=== PATIENT | female | born 1965 | race African-American/Black ===

== ENCOUNTER 2019-08-30 13:56 | Emergency (ER) | payer OTHER, SELFPAY ==
--- NOTE | 2019-08-30 14:19 | RAD ---
CHEST 2 VIEWS: Date: 08/30/2019 HISTORY: Cough. COMPARISON: 12/28/2012. FINDINGS: Cardiac silhouette and pulmonary vasculature unremarkable. Mediastinum midline. There is no confluent air space consolidation, pneumothorax, or pleural fluid. Mild rightward convex curvature of the thor acolumbar junction. IMPRESSION: No active cardiopulmonary abnormalities are demonstrated. POS: [facility]
== END 2019-08-30 17:26 | disposition home or self-care (01) ==
LOC: ERS 13:56
DX: J20.9 Acute bronchitis, unspecified (principal); I10 Essential (primary) hypertension; F20.9 Schizophrenia, unspecified; F17.210 Nicotine dependence, cigarettes, uncomplicated
CPT/HCPCS: 71046; 87804

== ENCOUNTER 2019-09-11 11:07 | Emergency (ER) | payer SELFPAY | END 2019-09-11 13:38 | disposition home or self-care (01) | LOC: ERS 11:07 | DX: F41.9 Anxiety disorder, unspecified (principal); I10 Essential (primary) hypertension; F20.9 Schizophrenia, unspecified; F17.210 Nicotine dependence, cigarettes, uncomplicated | CPT/HCPCS: 93005 ==